=== PATIENT | female | born 1965 | race Two or more races ===

== ENCOUNTER 2019-09-26 11:54 | Inpatient (IN) | payer OTHER ==
[~2019-09-26] VITALS: Ht 157.5 cm; Wt 63.1 kg
[2019-09-26 12:00] VITALS: Ht 157.5 cm; Wt 63.1 kg
[2019-09-26 12:48] LABS: BASOPHIL % 0.7 % (0-2); PLATELET COUNT 216 x10^3mcL (130-400); RED CELL DISTRIBUTION WIDTH 12.8 % (11.5-14.5)
[2019-09-26 13:04] LABS: CALCIUM 8.9 mg/dL (8.5-10.1); CARBON DIOXIDE 29.2 mmol/L (21-32); CHLORIDE SERUM 102 mmol/L (98-107); CREATININE SERUM 0.5 mg/dL (0.6-1.0); GFR1 > 60 mL/min; POTASSIUM SERUM 3.7 mmol/L (3.5-5.1); SODIUM SERUM 140 mmol/L (136-145)
[2019-09-26 13:11] LABS: ALBUMIN 3.5 g/dL (3.4-5.0); ALKALINE PHOSPHATASE 82 U/L (46-116); ALT/SGPT 31 U/L (14-59); AST/SGOT 17 U/L (15-37); GLUCOSE SERUM 214 mg/dL (74-106); HDL CHOLESTEROL 40 mg/dL (40-60); TOTAL PROTEIN, SERUM 6.6 g/dL (6.4-8.2); TRIGLYCERIDES 81 mg/dL (<150)
[2019-09-26 13:12] LABS: CHOLESTEROL 104 mg/dL (<200); CHOLESTEROL/HDL RATIO 2.6
[2019-09-26 13:36] LABS: microscopic required? NO
[2019-09-26 13:44] LABS: urine erythrocyte NEGATIVE (NEGATIVE)
[2019-09-26] MEDS ORDERED: METFORMIN HYD1000 M2 PO (15:02)
[2019-09-26] MEDS ORDERED: BENAZEPRIL HCL-1 TA1 PO (15:03)
[2019-09-26 16:25] VITALS: BP 118/33
[2019-09-26 20:39] LABS: AMPHETAMINE QUAL UR NONE DETECTED (See below)
[2019-09-26 20:41] VITALS: BP 107/48
[2019-09-27] VITALS (8 sets, daily range): BP systolic 112–139; BP diastolic 45–63
[2019-09-27 06:31] LABS: BASOPHIL % 0.6 % (0-2); PLATELET COUNT 195 x10^3mcL (130-400); RED CELL DISTRIBUTION WIDTH 12.7 % (11.5-14.5)
[2019-09-27 06:42] LABS: CALCIUM 8.7 mg/dL (8.5-10.1); CARBON DIOXIDE 27.6 mmol/L (21-32); CHLORIDE SERUM 108 mmol/L (98-107); CREATININE SERUM 0.6 mg/dL (0.6-1.0); GFR1 > 60 mL/min; GLUCOSE SERUM 81 mg/dL (74-106); MAGNESIUM 1.8 mg/dL (1.8-2.4); PHOSPHOROUS 4.3 mg/dL (2.5-4.9); POTASSIUM SERUM 4.3 mmol/L (3.5-5.1); SODIUM SERUM 145 mmol/L (136-145)
[2019-09-27 14:29] LABS: ALBUMIN 3.1 g/dL (3.4-5.0); BILIRUBIN DIRECT 0.2 mg/dL (0.0-0.2); BILIRUBIN TOTAL 0.7 mg/dL (0.20-1.00)
[2019-09-27 18:06] LABS: ALBUMIN 3.8 g/dL (3.4-5.0); BILIRUBIN DIRECT 0.34 mg/dL (0.0-0.2); BILIRUBIN TOTAL 0.9 mg/dL (0.20-1.00); TOTAL PROTEIN, SERUM 7.2 g/dL (6.4-8.2)
[2019-09-28 05:25] VITALS: BP 113/59
[2019-09-28 06:29] LABS: BASOPHIL % 0.3 % (0-2); PLATELET COUNT 204 x10^3mcL (130-400); RED CELL DISTRIBUTION WIDTH 12.4 % (11.5-14.5)
[2019-09-28 07:11] LABS: MAGNESIUM 1.8 mg/dL (1.8-2.4); PHOSPHOROUS 3.6 mg/dL (2.5-4.9)
[2019-09-28 07:14] LABS: ALKALINE PHOSPHATASE 86 U/L (46-116); ALT/SGPT 91 U/L (14-59); AST/SGOT 60 U/L (15-37); BILIRUBIN TOTAL 0.54 mg/dL (0.20-1.00); CALCIUM 9.2 mg/dL (8.5-10.1); CARBON DIOXIDE 24.7 mmol/L (21-32); CHLORIDE SERUM 105 mmol/L (98-107); CREATININE SERUM 0.7 mg/dL (0.6-1.0); GFR1 > 60 mL/min; GLUCOSE SERUM 251 mg/dL (74-106); SODIUM SERUM 139 mmol/L (136-145)
[2019-09-28 07:20] LABS: ALBUMIN 2.8 g/dL (3.4-5.0); TOTAL PROTEIN, SERUM 5.7 g/dL (6.4-8.2)
[2019-09-28 08:17] VITALS: BP 104/38
[2019-09-28 12:25] VITALS: BP 108/49
[2019-09-28 16:19] VITALS: BP 108/49
[2019-09-28 16:40] VITALS: BP 118/35
== END 2019-09-28 17:09 | disposition home or self-care (01) | DRG 263 ==
LOC: ED 11:54 → MU 14:40
PROVIDERS: Specialist; Surgery; ADMIT Student in an Organized Health Care Education/Training Program
PROC: 0FT44ZZ Resection of Gallbladder, Percutaneous Endoscopic Approach (ICD-10-PCS; principal; 2019-09-27 10:00)
DX: K80.00 Calculus of gallbladder with acute cholecystitis without obstruction (principal); E11.65 Type 2 diabetes mellitus with hyperglycemia; I10 Essential (primary) hypertension; J45.909 Unspecified asthma, uncomplicated; Z79.84 Long term (current) use of oral hypoglycemic drugs; Z79.899 Other long term (current) drug therapy; Z90.710 Acquired absence of both cervix and uterus
CPT/HCPCS: 82962; G0378; J1170; J1885; J2405; J2543; J3010; J3490; J7030; Q0092